=== PATIENT | male | born 1990 | race Caucasian/White ===

== ENCOUNTER 2019-10-07 20:53 | Inpatient (IN) | payer MEDICARE, OTHER ==
[~2019-10-07] VITALS: Ht 177.8 cm; Wt 90.7 kg
[2019-10-07 21:30] VITALS: BP 109/67
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
--- NOTE | 2019-10-07 21:31 | NUR ---
ED Nurse Note: Pt placed on suicide precautions, sitter at bedside. Pt changed into psych gown at this time. Pt has one shirt, placed in locker #3.
[2019-10-07 21:58] LABS: BASOPHILS % (AUTO) 0.6 % (0.0-2.0); EOSINOPHILS % (AUTO) 0.2 % (0.0-3.0); HEMATOCRIT 38.9 % (42.0-52.0); HEMOGLOBIN 13.4 G/DL (14.2-18.0); LYMPHOCYTES % (AUTO) 9.8 % (20.0-45.0); MEAN CORPUSCULAR VOLUME 82 FL (80-99); MONOCYTES % (AUTO) 7.8 % (1.0-10.0); NEUTROPHILS % (AUTO) 81.6 % (45.0-75.0); PLATELET COUNT 289 K/UL (150-450); RED BLOOD COUNT 4.73 M/UL (4.70-6.10); RED CELL DISTRIBUTION WIDTH 10.6 % (11.6-14.8); WHITE BLOOD COUNT 14.1 K/UL (4.8-10.8)
[2019-10-07 22:04] LABS: INR 0.9 (0.9-1.1)
[2019-10-07 22:13] LABS: ANION GAP 9 mmol/L (5-15); BLOOD UREA NITROGEN 13 mg/dL (7-18); CALCIUM 8.9 MG/DL (8.5-10.1); CARBON DIOXIDE 29 MMOL/L (21-32); CHLORIDE 101 MMOL/L (98-107); CREATININE 1.1 MG/DL (0.55-1.30); POTASSIUM 3.8 MMOL/L (3.5-5.1); SODIUM 139 MMOL/L (136-145)
[2019-10-07 22:24] LABS: ALANINE AMINOTRANSFERASE 30 U/L (12-78); ALBUMIN 3.8 G/DL (3.4-5.0); ALBUMIN/GLOBULIN RATIO 0.9 (1.0-2.7); ALKALINE PHOSPHATASE 73 U/L (46-116); ASPARTATE AMINO TRANSFERASE 20 U/L (15-37); BILIRUBIN,TOTAL 0.1 MG/DL (0.2-1.0); CREATINE KINASE 106 U/L (26-308)
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
[2019-10-07] MEDS ORDERED: Haloperidol 5mg/ml Inj IM ONE (23:00)
[2019-10-07] MEDS ORDERED: DiphenhydrAMINE 50mg/ml Inj IM ONE (23:00)
[2019-10-07] MEDS ORDERED: LORazepam Inj 2mg/ml 1ml IM ONE (23:00)
--- NOTE | 2019-10-07 23:00 | NUR ---
ED Nurse Note: Pt is resting comfortably in bed at this time. IV fluids infusing as ordered. Pt is being cooperative and in no acute distress. Sitter at bedside. Will continue to monitor.
[2019-10-07] MEDS ORDERED: MAALOX ADVANCE1 EACH PO (23:34)
[2019-10-07] MEDS ORDERED: SENNA8.6 M2 PO (23:43)
[2019-10-07] MEDS ORDERED: MULTIVITAMINS1 EAC2 ORAL (23:43)
[2019-10-07] MEDS ORDERED: RISPERDAL1 MG PO (23:43)
[2019-10-07] MEDS ORDERED: MILK OF MA400 MG/51 ORAL (23:43)
[2019-10-07] MEDS ORDERED: QUETIAPINE FUM100 MG ORAL (23:43)
[2019-10-07] MEDS ORDERED: ACETAMINOPHEN325 M1 ORAL (23:45)
--- NOTE | 2019-10-08 | NUR ---
ED Nurse Note: Pt is sleeping at this time, no acute distress noted. Sitter at bedside, safety measures in place.
--- NOTE | 2019-10-08 00:35 | NUR ---
ED Nurse Note: Report given to public health internship, Pete.
[2019-10-08 00:36] LABS: APPEARANCE,URINE CLEAR; BILIRUBIN, URINE NEGATIVE (NEGATIVE); GLUCOSE, URINE (UA) NEGATIVE (NEGATIVE); KETONES,URINE NEGATIVE (NEGATIVE); LEUKOCYTE ESTERASE ,URINE NEGATIVE (NEGATIVE); NITRITE,URINE NEGATIVE (NEGATIVE); PH,URINE 6.5 (4.5-8.0); UROBILINOGEN,URINE NORMAL MG/DL (0.0-1.0)
[2019-10-08 00:44] LABS: COLOR,URINE YELLOW
[2019-10-08 00:45] LABS: PROTEIN,URINE NEGATIVE (NEGATIVE)
--- NOTE | 2019-10-08 01:05 | NUR ---
ED Nurse Note: Pt taken to med surg unit via gurney by tech. Pt is in no acute distress at this time and is sleeping on gurney. Pt belonings sent with tech.
[2019-10-08 01:26] VITALS: BP 135/90
--- NOTE | 2019-10-08 02:00 | NUR ---
NURSE NOTES: Pt is admitted from ER in stable condition with DX of Altered mental status. Report received from TESSA Arroyo ER.Vitals stable, room air.Pt denies pain or shortness of breath. Pt follows command. Pt oriented to the unit. Safety precaution in place. Fall precaution in place. Pt signed belonging sheet. IV acces on right AC 20G; patent and asymptomatic.Pt was given sedation in the ER. Pt will be monitored closely. Pt is a elopement risk, pt has Hx suicidal Ideation. Dr. Bobo is called for admission orders. Dr. Bobo called back with admission orders and wanted to continue home Meds. Fall precaution in place. Bed alarm on, bed locked low in position,side rails up and call light within reach. Pt will be monitored.
[2019-10-08] MEDS ORDERED: Milk of Magnesia 30ml Ud ORAL PRN (03:45)
[2019-10-08 04:00] VITALS: BP 106/76
[2019-10-08] MEDS: D5 1/2NS 1,000 ML IV SCH ×2 (04:03→22:10)
--- NOTE | 2019-10-08 04:49 | NUR ---
NURSE NOTES: Pt is in bed, calm. D5 1/2 NS running at 60ml/hr. Sitter boom by bedside.
--- NOTE | 2019-10-08 06:00 | NUR ---
NURSE NOTES: Pt is in bed, asleep. Sitter by bedside.
[2019-10-08 06:58] LABS: BASOPHILS % (AUTO) 0.5 % (0.0-2.0); EOSINOPHILS % (AUTO) 2.1 % (0.0-3.0); HEMATOCRIT 35.2 % (42.0-52.0); HEMOGLOBIN 12.2 G/DL (14.2-18.0); LYMPHOCYTES % (AUTO) 25.8 % (20.0-45.0); MEAN CORPUSCULAR VOLUME 83 FL (80-99); MONOCYTES % (AUTO) 10.7 % (1.0-10.0); NEUTROPHILS % (AUTO) 60.9 % (45.0-75.0); PLATELET COUNT 281 K/UL (150-450); RED BLOOD COUNT 4.26 M/UL (4.70-6.10); RED CELL DISTRIBUTION WIDTH 10.6 % (11.6-14.8); WHITE BLOOD COUNT 9.7 K/UL (4.8-10.8)
[2019-10-08 07:10] LABS: ANION GAP 8 mmol/L (5-15); BLOOD UREA NITROGEN 10 mg/dL (7-18); CALCIUM 8.2 MG/DL (8.5-10.1); CARBON DIOXIDE 28 MMOL/L (21-32); CHLORIDE 108 MMOL/L (98-107); POTASSIUM 3.7 MMOL/L (3.5-5.1); SODIUM 144 MMOL/L (136-145)
--- NOTE | 2019-10-08 07:15 | NUR ---
HAND-OFF: Report given to Yony Asif RN.Informed to monitor closely for Elopement risk and suicidal ideation.
--- NOTE | 2019-10-08 07:50 | NUR ---
NURSE NOTES: Patient awake, alert x4; on room air, no sing of distress and shortness of breath; no sing of chest pain; IV Right AC 20G D51/2NS running @ 60cc; sitter Kinza at the bed side; side rails up x2, breaks engaged, bed at lowest position; call light within reach; will keep monitoring;
[2019-10-08 08:00] VITALS: BP 110/64
--- NOTE | 2019-10-08 09:26 | Diagnostic Imaging Report ---
Indication: Chest pain Technique: One view of the chest Comparison: none Findings: Lungs and pleural spaces are clear. Heart size is normal. Impression: No acute process
--- NOTE | 2019-10-08 09:30 | History and Physical Report ---
DATE OF ADMISSION: 10/07/2019 DATE AND TIME SEEN: 10/08/2019 approximate time is 8 a.m. CONSULTANTS: 1. Angella Lopez M.D. 2. Luis Sanchez M.D. CHIEF COMPLAINT: Altered mental status, gravely disabled, possible seizure. BRIEF HISTORY: This is a 28-year-old male from [facility], presented with above-mentioned diagnoses, admitted to medical floor. Currently, calm, slightly lethargic in bed. No complaint. No chest pain or shortness of breath. No nausea, vomiting, or diarrhea. PAST MEDICAL HISTORY: Possible seizure and psych history. PAST SURGICAL HISTORY: None. ALLERGIES: Denies. MEDICATIONS: Seroquel, Senokot, multivitamin, , Tylenol, Mylanta, magnesium, Haldol. SOCIAL HISTORY: No smoking. No alcohol. No intravenous drug abuse. FAMILY HISTORY: Noncontributory. PHYSICAL EXAMINATION: GENERAL: Calm in bed, oriented x2, in no acute distress. VITAL SIGNS: Temperature 97, pulse 91, respirations 16, blood pressure 106/76. CARDIOVASCULAR: No murmurs. LUNGS: Distant and clear. ABDOMEN: Bowel sounds positive. Nontender. Nondistended. EXTREMITIES: No cyanosis, clubbing, or edema. NEUROLOGIC: The patient moves all extremities, slightly weak. LABORATORY AND DIAGNOSTIC DATA: Labs at this time show hemoglobin and hematocrit 12/35, otherwise CBC is normal. BMP shows chloride 108, glucose 117, otherwise normal. INR is 0.9. PTT is 26. Urine tox is negative. Urinalysis is negative. ASSESSMENT: 1. Altered mental status. 2. Psych history. 3. Possible seizure. 4. Anemia. 5. Gravely disabled. PLAN: 1. Psych treatment. 2. Dietary followup. 3. Neuro eval. 4. PT/dietary eval. 5. Transfer to psych. 6. We will continue to follow the patient. Giorgi Bobo D.O. DR: GHULAM JOB#: [id number] CC:
[2019-10-08 12:00] VITALS: BP 109/69
[2019-10-08] MEDS ORDERED: LORazepam 1mg tab ORAL PRN (12:15)
--- NOTE | 2019-10-08 13:33 | NUR ---
Social Work This SW contacted Rosalina kebede ([phone]) and faxed the referral to (fax: [phone]). Addendum: 10/08/19 at 1349 by GEORGES SHAH [facility] intake explains they do not have a clinician to place patient on a 51-50 hold today, but will evaluate and send one as soon as possible. Tino Reed ([phone]) intake will larry. (chart information faxed to [phone]) [facility] ([phone]) will eval. (faxed chart information [phone])
--- NOTE | 2019-10-08 15:36 | NUR ---
CHARGE NURSE NOTE: Received call from [facility] that should mention in his notes that pt does not have seizure and does not need a neurological evaluation and medically stable. They only able to hold a bed for few hrs. was called, message left.
--- NOTE | 2019-10-08 15:53 | NUR ---
CHARGE NURSE NOTE: Spoke with , explained him the situation that facility needs a note from . is trying to help.
[2019-10-08 16:00] VITALS: BP 115/72
--- NOTE | 2019-10-08 16:03 | NUR ---
CHARGE NURSE NOTE: Spoke with . He is covering . He will come to see patient tomorrow. He is not able to write a note today.
--- NOTE | 2019-10-08 16:13 | NUR ---
Social Work Rosalina explains they will have a PET team available tomorrow AM. Rosalina and Abeba explain they are still evaluating patient, while awaiting Neuro consultation to be completed (pending at this time) due to possible seizures. MD to write order that Neuro is no longer needed (as needed) for clearance/ transfer to a [facility]. Nursing aware.
--- NOTE | 2019-10-08 19:27 | NUR ---
HAND-OFF: Report given to TESSA Valverde.
--- NOTE | 2019-10-08 19:45 | NUR ---
NURSE NOTES: Pt is in bed, asleep. No acute distress noted. Pt is on suicide and elopement alert. Sitter by bedside. Bed locked low in position,side rails up and call light within reach. Pt will be monitored.
[2019-10-08 20:00] VITALS: BP 109/64
[2019-10-08] MEDS ORDERED: Sennosides 8.6mg tab ORAL SCH (21:00)
[2019-10-08] MEDS ORDERED: Valproic Acid 250mg/5ml Liquid NG SCH (21:00)
--- NOTE | 2019-10-08 21:29 | NUR ---
NURSE NOTES: PET Eval is done; Pt is on 5150. Pt is to transfer to [facility] under DR. Lopez with Home Meds per DR. Bobo. [phone].
--- NOTE | 2019-10-08 21:52 | NUR ---
NURSE NOTES: Called [facility] ( [address] [place] [address]) [phone] and gave report to TESSA Soni
[2019-10-09] VITALS: BP 131/73
--- NOTE | 2019-10-09 00:50 | NUR ---
NURSE NOTES: Pt transferred to [facility] via [facility] in stable condition. Vitals stable, pt is awake, alert and ambulatory. Discharge packet along with original copy of [id number] HOLD sent with ambulance personnel . Pt's belonging sent with patient. Report given to TESSA Soni at the hospital.
[2019-10-09] MEDS ORDERED: D5 1/2NS 1000ml IV ONE (00:59)
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
--- NOTE | 2019-10-11 14:15 | Progress Note ---
DATE: 10/08/2019 NOTE: DISTORTED AUDIO The patient is a 28[facility]-old nursing facility. . The patient states that he is hearing voices telling him to kill himself and also he left the facility "nobody was giving me my diabetes medication and now I have diabetes. ." PAST MEDICAL HISTORY: At this time includes possible seizures. ALLERGIES: The patient has no known drug allergies. SUBSTANCE ABUSE HISTORY: He has no history of alcohol . PSYCHIATRIC HISTORY: The patient has schizophrenia and has been treated with psychotropic medications in the past. SOCIAL HISTORY: The patient is a 28-year male patient . MENTAL STATUS EXAMINATION: He is alert and oriented to person and place. His mood is depressed. Affect is blunted. Thought process, . Michele Clayton PsyD. DR: MANUEL JOB#: [id number] CC:
--- NOTE | 2019-10-11 14:15 | Consultation ---
DATE OF CONSULTATION: 10/08/2019 CONSULTING PHYSICIAN: Angella Lopez M.D. REFERRING PHYSICIAN: Giorgi Bobo D.O. HISTORY OF PRESENT ILLNESS: This is a 28-year-old male patient, came into the hospital. [facility] He apparently got a seizure disorder . He presented with altered mental status. He got confused after seizure, so nearly postictal state. No confusion according to the patient, but he is a very poor historian. On interview, he states, "I am not sure what happened. I think I just started having seizures and that is why I am here. I got confused and suicidal," was the patient's chief complaint. The patient has a hard time cindi for safety if he leaves the hospital. At this point, he denies any current suicidal or homicidal ideations, but he said if he leaves the hospital, he cannot himself at this point. That is another reason why there was a psychiatric consultation requested for this patient. PAST PSYCHIATRIC HISTORY: He has had multiple psychiatric admissions, previous diagnosis of paranoid schizophrenia versus schizoaffective bipolar type versus , he is moderately better and he is relatively healthy. PAST MEDICAL HISTORY: He has a history of seizure disorder, disorder. ALLERGIES: He has no known drug allergies. PSYCHOTROPIC MEDICATIONS ON ADMISSION: This patient is on a psychotropic medications regimen, Risperdal 1 mg twice a day, he is on Seroquel 100 mg at bedtime. SUBSTANCE ABUSE HISTORY: He is denying any recent history of any drug or alcohol use at this time. FAMILY PSYCHIATRIC HISTORY: Denies. PAIN ASSESSMENT: 0/10. DEVELOPMENTAL PROBLEMS: Denies. SOCIAL HISTORY: The patient lives in [facility]. He is financially supported by [facility] and Medicare. STRENGTHS: He is motivated to get better and the patient is healthy. He has a place to live. WEAKNESSES AND LIABILITIES: He is impulsive with minimal support system. MENTAL STATUS EXAMINATION: This is a 28-year-old male patient. His appearance is disheveled. His attitude is irritable and agitated. His affect is guarded and restricted. Intellect poor because he does not know current events, does not know the last four presidents. Mood is depressed and anxious. Motor activity, psychomotor agitation. Attention span is poor because he cannot do serial sevens or spell world backwards. Orientation x3, oriented to person, place, time, but not situation. Speech is normal volume but slightly slurred. Thought process, disorganized, illogical. Thought content, he has auditory hallucinations and paranoid delusions. Perception is poor because he has perceptual disturbance such as auditory hallucinations and paranoid delusions. Abstract reasoning is poor because he does not understand proverbs and he has concrete thinking. Insight is poor because he does not seem to recognize to have any psych disorder. Judgment is poor because . Short-term memory, 3/3 word recall after 5-minute delay with good short-term memory. Long-term memory is intact based on his knowledge of long-term events in his life such as high school that he went to. His gait is normal. There is . PLAN OF CARE AND PROBLEMS TO BE ADDRESSED: Include psychosis. DIAGNOSES: 1. Overall schizoaffective bipolar type. 2. Secondary, there is no secondary. 3. Medical, possible seizure disorder, neuropathy, lower extremity weakness. 4. Psychosocial stressors, financial. 5. Functional impairment is severe. PLAN: I am going to continue the patient on Risperdal 1 mg twice a day and Seroquel 100 mg at bedtime. Also, add Depakene syrup 500 mg twice a day for seizure prophylaxis and also for mood stabilization. Also, for as needed medication, I am also going to add Ativan at a dose of 1 mg every 6 hours p.r.n. anxiety, agitation, and provide 20 minutes of reality-based supportive psychotherapy. Chart reviewed. Discussed with staff. The patient was seen and assessed at bedside. Encouraged the patient to interact appropriately with staff and other patients. A 20 minutes of cognitive behavioral therapy was provided to help him identify his automated negative thoughts and help him convert those negative thoughts to more positive thoughts to reduce depression, anxiety, and suicidality. Chart reviewed. Discussed with staff. Angella Lopez M.D. : TIM JOB#: [id number] CC:
== END 2019-10-09 01:00 | DRG 885 ==
LOC: EMR 21:29 → 4E 22:49 → EDBEDREQ 10-08 00:27
DX: F23 Brief psychotic disorder (principal); F25.0 Schizoaffective disorder, bipolar type; G62.9 Polyneuropathy, unspecified; F32.9 Major depressive disorder, single episode, unspecified; G47.00 Insomnia, unspecified; R56.9 Unspecified convulsions
CPT/HCPCS: 36415; 71045; 80048; 80053; 80307; 81003; 82550; 83605; 83690; 83735; 83880; 84100; 84484; 85025; 85610; 85730; 87081; 93005; 96360; 96361; 96372; 99285; G0480; J7030